=== PATIENT | female | born 1995 | race Caucasian/White ===

== ENCOUNTER 2022-04-18 20:52 | Inpatient (IN) | payer BC ==
[~2022-04-18 20:52] MED LIST: Bupivacaine/Epinephrine 0.25% 30 ML VIAL ONE
[2022-04-18 21:25] VITALS: BMI 29.5
[2022-04-18] MEDS ORDERED: hydrALAZINE 20 MG/ML VIAL SLOW IVP PRN ×2 (22:27→22:51)
[2022-04-18] MEDS ORDERED: Carboprost 250 MCG/ML AMP IM PRN (22:51)
[2022-04-18] MEDS ORDERED: Lidocaine 1% (PF) 30 ML VIAL SC PRN (22:51)
[2022-04-18] MEDS ORDERED: Ondansetron PF 4 MG/2 ML Vial IVP PRN (22:51)
[2022-04-18] MEDS ORDERED: Misoprostol 200 MCG TAB PR PRN (22:51)
[2022-04-18] MEDS ORDERED: Methylergonovine 0.2 MG/ML VIAL IM PRN (22:51)
[2022-04-18] MEDS ORDERED: Diphenoxylate HCl/Atropine Tablet PO PRN (22:51)
[2022-04-18] MEDS ORDERED: Promethazine HCl 25 MG/ML VIAL IM PRN (22:51)
[2022-04-18] MEDS ORDERED: NS w/ Oxytocin 30 units 500 ML IV SCH ×2 (23:00)
[2022-04-19 01:09] LABS: Hemoglobin 10.3 g/dL (12.0-15.5); Mean Corpuscular HGB CONC 32.2 g/dL (32.0-36.0); Mean Corpuscular Hemoglobin 22.2 pg (27.0-33.0); Mean Corpuscular Volume 68.8 fl (81.6-98.3); Mean Platelet Volume 9.7 fl (7.4-10.4); Platelet Count 339 10x3/uL (150-450); RBC Distribution Width 14.6 % (11.5-14.5); Red Blood Cell (RBC) Count 4.65 10x6/uL (3.90-5.03); White Blood Cell (WBC) Count 10.4 10x3/uL (3.5-10.5)
[2022-04-19] MEDS ORDERED: Zolpidem Tartrate 5 MG TAB PO SCH (01:30)
[2022-04-19 01:35] LABS: Syphilis Antibody Nonreactive (Nonreactive); Syphilis Antibody Index 0.04 S/CO (<1.00 Non-Reactive)
[2022-04-19 01:37] LABS: Hep B Surf Ag Non-Reactive S/CO (NonReactive)
[2022-04-19 02:22] LABS: SARS-CoV-2 NAA Rapid Test Not Detected (NotDetected)
[2022-04-19] MEDS ORDERED: Fentanyl 2 mcg/Bup 0.1% Cadd 100 ML ONE (03:41)
[2022-04-19] MEDS ORDERED: Naloxone HCl 0.4 mg/ml Vial IVP PRN ×2 (04:13)
[2022-04-19] MEDS ORDERED: Ondansetron PF 4 MG/2 ML Vial IVP PRN ×2 (04:13→11:22)
[2022-04-19] MEDS ORDERED: Moisturizing Cream (Eucerin) 113 GM JAR TOP PRN (04:13)
[2022-04-19] MEDS ORDERED: ePHEDrine Sulfate 50 MG/10 ML VIAL SLOW IVP PRN (04:13)
[2022-04-19] MEDS ORDERED: diphenhydrAMINE 50 MG/ML VIAL IVP PRN (04:13)
[2022-04-19] MEDS ORDERED: Lactated Ringer's 500 ML IV PRN (04:13)
[2022-04-19] MEDS ORDERED: Promethazine HCl 25 MG/ML VIAL IM PRN (04:13)
[2022-04-19] MEDS ORDERED: Acetaminophen 325 MG TAB PO PRN (04:13)
[2022-04-19] MEDS ORDERED: Communication Order-Pharmacy FS SCH (04:15)
[2022-04-19] MEDS ORDERED: Fentanyl 2 mcg/Bupivacaine 0.1% Cassette 100 ML EPIDURAL SCH (04:15)
[2022-04-19] MEDS ORDERED: Bisacodyl 10 MG SUPP PR PRN (11:22)
[2022-04-19] MEDS ORDERED: Misoprostol 200 MCG TAB VAG PRN (11:22)
[2022-04-19] MEDS ORDERED: Milk Of Magnesia 30 ML UDCUP PO PRN (11:22)
[2022-04-19] MEDS ORDERED: Zolpidem Tartrate 5 MG TAB PO PRN (11:22)
[2022-04-19] MEDS ORDERED: Benzocaine-Menthol 82.5 ML CAN TOP PRN (11:22)
[2022-04-19] MEDS ORDERED: Boostrix 0.5 ML (Tdap) VIAL IM ONE (11:22)
[2022-04-19] MEDS ORDERED: Preparation H Ointment 28 GM TUBE PR PRN (11:22)
[2022-04-19] MEDS ORDERED: hydrALAZINE 20 MG/ML VIAL SLOW IVP PRN (11:22)
[2022-04-19] MEDS ORDERED: diphenhydrAMINE 25 MG CAP PO PRN (11:22)
[2022-04-19] MEDS ORDERED: Lanolin Ointment 7 GM TUBE TOP PRN (11:22)
[2022-04-19] MEDS ORDERED: traMADol HCl 50 MG TAB PO PRN (11:24)
[2022-04-19] MEDS ORDERED: NS w/ Oxytocin 30 units 500 ML IV SCH (11:30)
[2022-04-19] MEDS: Ibuprofen 800 MG TAB PO SCH ×3 (12:51→22:03)
[2022-04-19] MEDS: Ferrous Sulfate 325 MG TAB PO SCH (14:14)
[2022-04-19] MEDS: Docusate 100 MG CAP PO SCH (22:03)
[2022-04-20 04:03] LABS: Hemoglobin 9.4 g/dL (12.0-15.5); Mean Corpuscular HGB CONC 31.3 g/dL (32.0-36.0); Mean Corpuscular Hemoglobin 22.2 pg (27.0-33.0); Mean Corpuscular Volume 70.9 fl (81.6-98.3); Mean Platelet Volume 9.7 fl (7.4-10.4); Platelet Count 279 10x3/uL (150-450); RBC Distribution Width 14.7 % (11.5-14.5); Red Blood Cell (RBC) Count 4.23 10x6/uL (3.90-5.03); White Blood Cell (WBC) Count 11.1 10x3/uL (3.5-10.5)
[2022-04-20] MEDS: Ibuprofen 800 MG TAB PO SCH ×2 (05:51→14:15)
[2022-04-20 08:01] VITALS: BP 112/59; TEMP 98.2
[2022-04-20] MEDS: Ferrous Sulfate 325 MG TAB PO SCH (08:10)
[2022-04-20] MEDS: Docusate 100 MG CAP PO SCH (08:10)
[2022-04-20] MEDS ORDERED: Prenatal Vitamin 1 TAB PO SCH (09:00)
== END 2022-04-20 14:40 | disposition home or self-care (01) | DRG 807 ==
LOC: CSHLD/OP 20:52 → CSHLD 22:51 → UNDOADMIN 04-19 00:41 → CSHLD 04-19 00:41 → CSHPP 04-19 13:15
PROVIDERS: ADMIT Obstetrics & Gynecology; ATTEND Obstetrics & Gynecology
PROC: 10E0XZZ Delivery of Products of Conception, External Approach (ICD-10-PCS; principal; 2022-04-19)
PROC: 10907ZC Drainage of Amniotic Fluid, Therapeutic from Products of Conception, Via Natural or Artificial Opening (ICD-10-PCS; 2022-04-19)
PROC: 0HQ9XZZ Repair Perineum Skin, External Approach (ICD-10-PCS; 2022-04-19)
DX: O99.354 Diseases of the nervous system complicating childbirth (principal); Z37.0 Single live birth; O70.0 First degree perineal laceration during delivery; Z3A.38 38 weeks gestation of pregnancy; Z88.8 Allergy status to other drugs, medicaments and biological substances; Z98.890 Other specified postprocedural states; G43.909 Migraine, unspecified, not intractable, without status migrainosus; O99.72 Diseases of the skin and subcutaneous tissue complicating childbirth; L98.8 Other specified disorders of the skin and subcutaneous tissue; Z20.822 Contact with and (suspected) exposure to COVID-19
CPT/HCPCS: 51702; 76819; 85027; 86780; 86850; 86900; 86901; 87340; 99285; J1200; J2590; U0002